=== PATIENT | female | born 1950 | race Caucasian/White ===

== ENCOUNTER 2025-03-30 10:42 | Outpatient (CLI) | payer MEDICARE, SELFPAY | END 2025-03-30 10:43 | disposition home or self-care (01) | LOC: NFLDREF 04-02 15:26 | PROVIDERS: Visit Provider Physician Assistant | DX: N39.0 Urinary tract infection, site not specified (principal); B96.20 Unspecified Escherichia coli [E. coli] as the cause of diseases classified elsewhere | CPT/HCPCS: 87086 ==

== ENCOUNTER 2025-04-01 19:59 | Emergency (ER) | payer MEDICARE, SELFPAY ==
--- OUTSIDE RECORDS SUMMARY | 2022-12-20 05:22 | XMS_ITS | Continuity of Care Document ---
Author Organization [facility] Address [address] [place] [address] Phone Care Team Providers Care Lubricating Specialist Name Role Phone [facility], [place] Unavailable Unavaila ble Advance Directives Directive Yes / No Effective Date File Name No Information Encounters Encounter Description Practice Location Reason(s) For Visit Diagnoses Date Provider Providers Copied on Encounter [facility], [address], [place], [id number] tel: [phone] [facility] No Information [facility]. [address] [place], [id number]. tel: Family History Family Member Type Diagnosis Age At Onset No Information Payers Payer name Insurance type Covered alliance party ID Authoriza tion(s) No Information Social History Type Description Quantity Date Captured Comments Alcohol Use Details Unknown Caffeine Use Details Unknown Tobacco Use Status No Information Smoking Status No Information Sex Female Chief Complaint And Reason For Visit No Information Reason For Referral Reason For Referral No Information History Of Present Illness Encounter Date Complaint History Of Prese nt Illness No Information Functional Status Date Functional Assessmen t No Information Instructions Date Instruction Additional Infor mation No Information Assessments Type Assessment Date No Information Patient Care Teams Name Effective Dates (start - stop) Status Members No Information
--- OUTSIDE RECORDS SUMMARY | 2022-12-20 05:22 | XMS_ITS | Continuity of Care Document ---
Author Organization [facility] Address [address] [place] [address] Phone Care Team Providers Care Merry Go Round Operator Name Role Phone [facility] [place] Unavailable Unavaila ble Advance Directives Directive Yes / No Effective Date File Name No Information Encounters Encounter Description Practice Location Reason(s) For Visit Diagnoses Date Provider Providers Copied on Encounter [facility], [address], [place], [id number] tel: [phone] [facility] No Information [facility]. [address] [place], [id number]. tel: Family History Family Member Type Diagnosis Age At Onset No Information Payers Payer name Insurance type Covered green party ID Authoriza tion(s) No Information Social [...]
--- OUTSIDE RECORDS SUMMARY | 2024-07-31 14:25 | XMS_ITS ---
Author Organization [facility] Address [address] [place] [address] Care Team Providers Care Employee Communications Coordinator Name Role Phone Dominik Barr DO Primary Care Provider Unavail able Blanche Muñoz Unavailable [phone] ALLERGIES Allergen (clinical drug ingredient) Drug/Non Drug Allergy documented on EMR Reaction Allergy Type Onset Date Status phenytoin Dilantin hives Drug Allergy Active oxcarbazepine Trileptal Unknown Drug Allergy Act giovanna codeine Codeine Unknown Drug Allergy Active REASON FOR VISIT possible UTI was here 07/24 and still having symptoms feels like it cleared up only a little bit butnot much MEDICATIONS Medication SIG (Take, Route, Frequency, Duration) Notes Start Date End Date Status QUEtiapine Fumarate 400 MG 1 tab(s) orally once a day (in the evening) Active Nitrofurantoin Monohyd Macro 100 MG 1 capsule with food Orally every 12 hrs for 7 days 07/24/2024 Active Nitrofurantoin Monohyd Macro 100 MG 1 capsule with food Orally every 12 hrs for 7 days 01/21/2024 Not-Taking Naproxen as needed *Raj camara review and pick correct strength-formulat ion from Medlum[employer]an options. If intended option is not shown, discontinue and re-order from Quick Search* Not-Taking LaMICtal 150 MG 1 tab(s) orally 2 times a day Active Amoxicillin-Pot Clavulanate 875-125 MG 1 tab(s) orally every 12 hours for 10 day(s) 10/07/2023 Not-Taking Cephalexin 500 MG 1 capsule Orally three times a day for 7 days 07/31/2024 Active Rosuvastatin Calcium 10 MG 1 tablet Orally Once a day Active DULoxetine HCl 30 MG 1 cap(s) orally 2 times a day Active Gabapentin 600 MG 1 tab(s) orally 3 times a day Active Ciprofloxacin HCl 500 MG 1 tablet Orally every 12 hrs for 7 days 09/19/2023 Not-Taking Macrobid 100 MG 1 cap(s) orally 2 times a day for 7 day(s) 12/29/2022 Not-Taking VITAL SIGNS Temperature 98.2 degrees Fahrenheit 07/31/20 Blood pressure systolic 119 mm Hg 07/31/20 Blood pressure diastolic 79 mm Hg 024 Heart Rate 88 /min 07/31/2024 Respiratory Rate 16 /min 07/31/2024 Height 64 in 07/31/2024 Weight 160 lbs 07/31/2024 BMI 27.46 kg/m2 07/31/2024 Oximetry 96 % 07/31/2024 Height-cm 162.56 cm 07/31/2024 Weight-kg 72.57 kg 07/31/2024 Glenis Palafox MA 07/31/2024 07:39:39 PM > Encounters Encounter Location Date Provider Diagnosis REPLACED BY [facility] [address] [place] [address] 07/31/2024 Blanche Wanda Acute cystitis without hematuria N30.00 ASSESSMENTS Encounter Date Diagnosis Assessment Notes Treatment Notes Treatment Clinical Notes Section Notes 07/31/2024 Acute cystitis without hematuria (ICD-10 - N30.00) Patient's urine culture shows intermediate urinary resistance. Antibiotic should have been switch to something different. Discussed urinary culture results with patient. No further urinalysis or culture needed. I will switch patient to antibiotics susceptible to current urine culture. Medication risks and side effects discussed with patient in clinic. If anything worsens or does not improve in a week, return to clinic. PLAN OF TREATMENT Medication Medication Name Sig Start Date Stop Date Notes Cephalexin 500 MG 1 capsule Orally thr ee times a day for 7 days 07/31/2024 Treatment Notes Assessment Notes Acute cystitis without hematuria Patient 's urine culture shows intermediate urinary resistance. Antibiotic should have been switch to something different. Discussed urinary culture results with patient. No further urinalysis or culture needed. I will switch patient to antibiotics susceptible to current urine culture. Medication risks and side effects discussed with patient in clinic. If anything worsens or does not improve in a week, return to clinic. Next Appt Details Follow Up: prn, Reason: Procedure Notes * Category Sub-Category Detail Notes Medication Dispensed Program/Medication Information: DirectRx Program, medication information sheet given to patient/parent Medication verified: Second staff member verified correct medication, dosage and instructions prior to the medication being dispensed to the correct patient., Ju Yan 07/31/2024 08:04:13 PM > Dispensed by: Glenis Palafox MA 08:01:58 PM > Medication/dosage dispensed: Keflex (cep halexin) 500mg #40 Progress Notes * Brigitte KEY SDOB: 0 (73 yo F)Acc No.[id number]:07/31/2024 Progress Note Patient: Brigitte KEY Provider: Blanche Swain NP :[id number] Age:73 Y Sex:Female Date:07/31/2024 Address:[address] [place] [address] [address], [facility], [id number] Pcp:Dominik Barr, Subjective: * Chief Complaints: * possible UTI was here 07/24 and still having symptoms feels like it cleared up only a little bit but not much * HPI: GI/: 73 year old female presents with c/o Urinary symptoms pain with urination, urinary frequency. Denies : Abdominal pain. Denies : Vomiting. Denies : Nausea. Denies : CVA Tenderness. Denies : Fever. Patient is a pleasant 73-year-old female who comes into urgent care for urinary frequency, urgency that has only gotten moderately better since she was seen in urgent care a week ago. She was prescribed Macrobid. Voicemail was left stating that if symptoms were not getting better on nitrofurantoin the patient should return to clinic. * Active Problem List ?Problem List has not been verified* Medical History: * Surgical History: * Hospitalization/Major Diagno stic Procedure: * Medications: TakingRosuvastatin Calcium 10 MG Tablet 1 tablet Orally Once a day DULoxetine HCl 30 MG Capsule Delayed Release Particles 1 cap(s) orally 2 times a day Gabapentin 600 MG Tablet 1 tab(s) orally 3 times a day LaMICtal 150 MG Tablet 1 tab(s) orally 2 times a day QUEtiapine Fumarate 400 MG Tablet 1 tab(s) orally once a day (in the evening) Nitrofurantoin Monohyd Macro 100 MG Capsule 1 capsule with food Orally every 12 hrs Taking Rosuvastatin Calcium 10 MG Tablet 1 tablet Orally Once a day Taking DULoxetine HCl 30 MG Capsule Delayed Release Particles 1 cap(s) orally 2 times a day Taking Gabapentin 600 MG Tablet 1 tab(s) orally 3 times a day Taking LaMICtal 150 MG Tablet 1 tab(s) orally 2 times a day Taking QUEtiapine Fumarate 400 MG Tablet 1 tab(s) orally once a day (in the evening) Taking Nitrofurantoin Monohyd Macro 100 MG Capsule 1 capsule with food Orally every 12 hrs Not-Taking/PRNNitrofurantoin Monohyd Macro 100 MG Capsule 1 capsule with food Orally every 12 hrs Naproxen , Notes to Pharmacist: as needed *Please review and pick correct strength-formulation from Medispan options. If intended option is not shown, discontinue and re-order from Quick Search*Ciprofloxacin HCl 500 MG Tablet 1 tablet Orally every 12 hrs Macrobid 100 MG Capsule 1 cap(s) orally 2 times a day Amoxicillin-Pot Clavulanate 875-125 MG Tablet 1 tab(s) orally every 12 hours Medication List reviewed and reconciled with the patientNot-Taking/PRN Nitrofurantoin Monohyd Macro 100 MG Capsule 1 capsule with food Orally every 12 hrs Not-Taking/PRN Naproxen , Notes to Pharmacist: as needed *Please review and pick correct strength-formulation from Medispan options. If intended option is not shown, discontinue and re-order from Quick Search*Not-Taking/PRN Ciprofloxacin HCl 500 MG Tablet 1 tablet Orally every 12 hrs Not-Taking/PRN Macrobid 100 MG Capsule 1 cap(s) orally 2 times a day Not- Taking/PRN Amoxicillin-Pot Clavulanate 875-125 MG Tablet 1 tab(s) orally every 12 hours Medication List reviewed and reconciled with the patient * Allergies: CodeineDilantin: hivesTrileptalno[Allergies Verified] Objective: * Vitals: Ht: 64 in, Height (cm): 162.56, Wt: 160 lbs, Weight (kg): 72.57, BMI:27.46, BP:119/79, HR:88, RR: 16, Temp:98.2, O2 sat %:96 Glenis Palafox MA 07/31/2024 07:39:39 PM >. * Examination: Brief Exam: GENERAL APPEARANCE: Constitutional: non-ill appearing, normal speech, well groomedNeuro: Alert and orientated X 3HEENT: atraumatic, normocephalic. C hest: Normal symmetry and expansionAbdomen: Non-distendedSkin: All exposed skin is pink, warm, and dryMusculoskeletal: Active ROM . Assessment: * Assessment: 1. Acute cystitis without hematuria - N30.00 (Primary) Plan: * Treatment: * Procedures: Medication Dispensed: Dispensed by: Glenis Palafox MA 07/31/2024 08:01:58 PM >. Medication/dosage dispensed: Keflex (cephalexin) 500mg #40. Program/Medication Information: DirectRx Program, medication information sheet given to patient/parent. Medication verified: Second staff member verified correct medication, dosage and instructions prior to the medication being dispensed to the correct patient., Ju Yan 07/31/2024 08:04:13 PM >. * Procedure Codes: * Follow Up: prn * * Sign off status: Completed true * Provider: Blanche Swain NP Date: 07/31/2024 History and Physical Notes * HPI (History of Present Illness) Category Sub-Category Detail Notes Category Not es GI/ Fever Patient is a pl easant 73-year-old female who comes into urgent care for urinary frequency, urgency that has only gotten moderately better since she was seen in urgent care a week ago. She was prescribed Macrobid. Voicemail was left stating that if symptoms were not getting better on nitrofurantoin the patient should return to clinic. Abdominal pain Vomiting Urinary symptoms pain with urination, urinary frequency Nausea CVA Tenderness Examination Category Sub-Category Detail Notes Category Not es Brief Exam GENERAL APPEARANCE: Constitution al: non-ill appearing, normal speech, well groomedNeuro: Alert and orientated X 3HEENT: atraumatic, normocephalic. Chest: Normal symmetry and expansionAbdomen: Non-distendedSkin: All exposed skin is pink, warm, and dryMusculoskeletal: Active ROM
--- OUTSIDE RECORDS SUMMARY | 2024-10-10 14:35 | XMS_ITS ---
Author Organization [facility] Address [address] [place] [address] Care Team Providers Care Business Services Sales Agent Name Role Phone Dominik Barr DO Primary Care Provider Unavail Velma Metz Unavailable [phone] ALLERGIES Allergen (clinical drug ingredient) Drug/Non Drug Allergy documented on EMR Reaction Allergy Type Onset Date Status phenytoin Dilantin hives Drug Allergy Active oxcarbazepine Trileptal Unknown Drug Allergy Act giovanna codeine Codeine Unknown Drug Allergy Active RESULTS Component Value Reference Range Notes Urinalysis Reviewed date:10/10/2024 08:12:55 PM Interpretation: Performing Lab: Notes/Report: Color yellow Clarity cloudy Leuk 3+ Nitrite neg Urobili 0.2 Protein 1+ pH 6.0 Blood trace Sp Gr 1.015 Ketone neg Bili neg Glucose neg WBCs RBCs Casts Other -Urine Culture, Routine Reviewed date:10/13/2024 08:49:19 AM Interpretation:Abnormal Performing Lab: Notes/Report: REASON FOR VISIT possible UTI, Patient consents to the use of [employer] dictation software during today's visit. MEDICATIONS Medication SIG (Take, Route, Frequency, Duration) Notes Start Date End Date Status QUEtiapine Fumarate 400 MG 1 tab(s) oral ly once a day (in the evening) Active LaMICtal 150 MG 1 tab(s) orally 2 ti mes a day Active Nitrofurantoin Monohyd Macro 100 MG 1 capsule with food Orally every 12 hrs for 7 days 07/24/2024 Active Rosuvastatin Calcium 10 MG 1 tablet Oral ly Once a day Active Cephalexin 500 MG 2 cap(s) Orally 2 ti mes a day with food for 7 days 10/10/2024 Active SOCIAL HISTORY Tobacco Use: Social History Observation Description Date Details (start date - stop date) Never Smoker NA - NA Sex Assigned At : Social History Observation Description Sex Assigned At Unknown Tobacco Use: Question Answer Notes Are you a: never smoker Additional Findings: Tobacco Non-User Current no n-smoker VITAL SIGNS Temperature 97.4 degrees Fahrenheit 10/10/20 24 Blood pressure systolic 110 mm Hg 10/10/20 24 Blood pressure diastolic 74 mm Hg 024 Heart Rate 94 /min 10/10/2024 Respiratory Rate 16 /min 10/10/2024 Height 64 in 10/10/2024 Weight 154.2 lbs 10/10/2024 BMI 26.47 kg/m2 10/10/2024 Oximetry 96 % 10/10/2024 Height-cm 162.56 cm 10/10/2024 Weight-kg 69.94 kg 10/10/2024 CM RMA Encounters Encounter Location Date Provider Diagnosis [facility] [address] [place] [address] 10/10/2024 Velma Macdonaldum Acute UTI N39.0 ASSESSMENTS Encounter Date Diagnosis Assessment Notes Treatment Notes Treatment Clinical Notes Section Notes 10/10/2024 Acute UTI (ICD-10 - N39.0) Patient will take 1000mg of cephalexin in divided daily dose x 5 days. She will follow up with her PCP due to her frequent UTIs in the next 1-2 weeks. 10/10/2024 Other Urinary Tract Infection: Exam and history are consistent with urinary tract infection. Urinalysis positive for leukocytes and trace blood. Review of previous urine cultures shows varying organisms including enterococcus and Klebsiella. Starting cephalexin due to previous culture sensitivities and safety profile. Patient counseled that medication may need to be changed based on culture results. Will follow up with culture results in a few days. Patient instructed to return immediately if symptoms worsen or by Sunday if not improving. Patient verbalizes understanding of plan. AI Scribe Disclaimer: This note was generated with the assistance of an AI-powered scribe. While every effort has been made to ensure the accuracy and completeness of the documentation, errors or omissions may occur, similar to dictation systems. The healthcare provider has reviewed and approved the contents of this note. If any inaccuracies are identified, they will be corrected promptly upon discovery. PLAN OF TREATMENT Medication Medication Name Sig Start Date Stop Date Notes Cephalexin 500 MG 2 cap(s) Orally 2 ti mes a day with food for 7 days 10/10/2024 Treatment Notes Assessment Notes Acute UTI Patient will take 10 00mg of cephalexin in divided daily dose x 5 days. She will follow up with her PCP due to her frequent UTIs in the next 1-2 weeks. Other Urinary Tract Infection: Exam and history are consistent with urinary tract infection. Urinalysis positive for leukocytes and trace blood. Review of previous urine cultures shows varying organisms including enterococcus and Klebsiella. Starting cephalexin due to previous culture sensitivities and safety profile. Patient counseled that medication may need to be changed based on culture results. Will follow up with culture results in a few days. Patient instructed to return immediately if symptoms worsen or by Sunday if not improving. Patient verbalizes understanding of plan. Next Appt Details Follow Up: See treatment nubia n for details, Reason: Procedure Notes * Category Sub-Category Detail Notes Medication Dispensed Program/Medication Information: DirectRx Program, medication information sheet given to patient/parent Medication verified: Second staff member verified correct medication, dosage and instructions prior to the medication being dispensed to the correct patient., Chip Cartwright MA N 10/10/2024 08:11:51 PM > Dispensed by: Ju Yan 1 12/11/2023 08:10:41 PM > Medication/dosage dispensed: Keflex (cep halexin) 500mg #40 Progress Notes * Brigitte KEY SDOB: 0 (74 yo F)Acc No.[id number]:10/10/2024 Progress Note Patient: Brigitte KEY Provider: RITESH Angelo :1950 Age:74 Y Sex:Female Date:10/10/2024 Address:[facility] [address] [place], [id number] Pcp:Dominik Barr DO Subjective: * Chief Complaints: * possible UTIPatient consents to the use of AI dictation software during today's visit. * HPI: Note:: Presents with urinary frequency and urgency. Has a history of frequent urinary tract infections. Reports noticing symptoms with delayed onset of cloudy urine compared to previous episodes. Has been maintaining good fluid intake. P ast medical history significant for Multiple Sclerosis. H istorian Denies:No known drug allergies, specifically no antibiotic allergies. * ROS: UROLOGY: Admits urinary frequency. * Active Problem List ?Problem List has not been verified* Medical History: * Surgical History: No Surgical History documented. * Hospitalization/Major Diagno stic Procedure: No Hospitalization History. * Family History: Father: . Mother: . * Social History: General: Tobacco Use Are you a: never smoker Additional Findings: Tobacco Non-User Current non-smoker Smokeless Tobacco or other tobacco use: no. * Medications: TakingRosuvastatin Calcium 10 MG Tablet 1 tablet Orally Once a day LaMICtal 150 MG Tablet 1 tab(s) orally 2 times a day QUEtiapine Fumarate 400 MG Tablet 1 tab(s) orally once a day (in the evening) Nitrofurantoin Monohyd Macro 100 MG Capsule 1 capsule with food Orally every 12 hrs Taking Rosuvastatin Calcium 10 MG Tablet 1 tablet Orally Once a day Taking LaMICtal 150 MG Tablet 1 tab(s) orally 2 times a day Taking QUEtiapine Fumarate 400 MG Tablet 1 tab(s) orally once a day (in the evening) Taking Nitrofurantoin Monohyd Macro 100 MG Capsule 1 capsule with food Orally every 12 hrs DiscontinuedDULoxetine HCl 30 MG Capsule Delayed Release Particles 1 cap(s) orally 2 times a day Gabapentin 600 MG Tablet 1 tab(s) orally 3 times a day Cephalexin 500 MG Capsule 1 capsule Orally three times a day Nitrofurantoin Monohyd Macro 100 MG Capsule 1 [...] Medication List reviewed and reconciled with the patientDiscontinued DULoxetine HCl 30 MG Capsule Delayed Release Particles 1 cap(s) orally 2 times a day Discontinued Gabapentin 600 MG Tablet 1 tab(s) orally 3 times a day Discontinued Cephalexin 500 MG Capsule 1 capsule Orally three times a day Discontinued Nitrofurantoin Monohyd Macro 100 MG Capsule 1 capsule with food Orally every 12 hrs Discontinued Naproxen , Notes to Pharmacist: as needed *Please review and pick correct strength-formulation from Medispan options. If intended option is not shown, discontinue and re-order from Quick Search*Discontinued Ciprofloxacin HCl 500 MG Tablet 1 tablet Orally every 12 hrs Discontinued Macrobid 100 MG Capsule 1 cap(s) orally 2 times a day Discontinued Amoxicillin-Pot Clavulanate 875-125 MG Tablet 1 tab(s) orally every 12 hours Medication List reviewed and reconciled with the patient * Allergies: CodeineDilantin: hivesTrileptalno[Allergies Verified] Objective: * Vitals: Ht: 64 in, Height (cm): 162.56, Wt: 154.2 lbs, Weight (kg): 69.94, BMI:26.47, BP:110/74, HR:94, RR:16, Temp:97.4, O2 sat %:96 CM RMA. * Examination: Brief Exam: GENERAL APPEARANCE: Alert, p leasant, N AD, h ealthy a ppearing. HEENT: Atraumatic, n ormocephalic. HEART: RRR, n ormal S 1 S 2, n o m urmurs. *CHEST: Normal s hape a nd e xpansion. LUNGS: Clear t o a uscultation b ilaterally, n o c rackles o r?wheezes, n ormal r espiratory e ffort. ABDOMEN: Soft, n ontender, n on d istended, b owel s ounds p resent, n o m asses f elt, n o h epatosplenomegaly, no CVA TTP.. SKIN: Dry a nd w arm, n o r yair. EXTREMITIES: Normal, n o e denise. NEUROLOGIC EXAM: Alert a nd o riented. Assessment: * Assessment: 1. Acute UTI - N39.0 (Primary) Plan: * Treatment: Value Reference Range Color yellow * Clarity cloudy * Leuk 3+ * Nitrite neg * Urobili 0.2 * Protein 1+ * pH 6.0 * Blood trace * Sp Gr 1.015 * Ketone neg * Bili neg * Glucose neg * Ju Yan 10/10/2024 08:02:14 PM >Velma Avitia 10/10/2024 08:12:42 PM >positive for leuks and trace blood. Notes: Patient will take 1000mg of cephalexin in divided daily dose x 5 days. She will follow up with her PCP due to her frequent UTIs in the next 1-2 weeks.?2.??Others?? Notes: Urinary Tract Infection: Exam and history are consistent with urinary tract infection. Urinalysis positive for leukocytes and trace blood. Review of previous urine cultures shows varying organisms including enterococcus and Klebsiella. Starting cephalexin due to previous culture sensitivities and safety profile. Patient counseled that medication may need to be changed based on culture results. Will follow up with cultureresults in a few days. Patient instructed to return immediately if symptoms worsen or by Sunday if not improving. Patient verbalizes understanding of plan.? Clinical Notes: AI Scribe Disclaimer: This note was generated with the assistance of an AI-powered scribe. While every effort has been made to ensure the accuracy and completeness of the documentation, errors or omissions may occur, similar to dictation systems. The healthcare provider has reviewedand approved the contents of this note. If any inaccuracies are identified, they will be corrected promptly upon discovery.? * Procedures: Medication Dispensed: Dispensed by: Ju Yan 10/10/2024 08:10:41 PM >. Medication/dosage dispensed: Keflex (cephalexin) 500mg #40. Program/Medication Information: DirectRx Program, medication information sheet given to patient/parent. Medication verified: Second staff member verified correct medication, dosage and instructions prior to the medication being dispensed to the correct patient., Chip Cartwright MA 10/10/2024 08:11:51 PM >. * Procedure Codes: 78301 #URINE DIP WITHOUT MICRO IN [id number] #URINE CULTURE/COLONY COUNT, Modifiers: 90 * Follow Up: See treatment plan for details * * Sign off status: Completed true * Provider: RITESH Angelo Date: 10/10/2024 History and Physical Notes * HPI (History of Present Illness) Category Sub-Category Detail Notes Category Not es Note: Presents with urinary frequency and urgency. Has a history of frequent urinary tract infections. Reports noticing symptoms with delayed onset of cloudy urine compared to previous episodes. Has been maintaining good fluid intake. Past medical history significant for Multiple Sclerosis. Historian Denies:No known drug allergies, specifically no antibiotic allergies. Examination Category Sub-Category Detail Notes Category Not es Brief Exam HEENT: Atraumatic, normocephalic HEART: RRR, normal S1 S2, n o murmurs LUNGS: Clear to auscultatio n bilaterally, no crackles or wheezes, normal respiratory effort ABDOMEN: Soft, nontender, non distended, bowel sounds present, no masses felt, no hepatosplenomegaly, no CVA TTP. EXTREMITIES: Normal, no edema GENERAL APPEARANCE: Alert, pleasant, NAD , healthy appearing SKIN: Dry and warm, no miguel h NEUROLOGIC EXAM: Alert and oriented *CHEST: Normal shape and exp ansion
--- OUTSIDE RECORDS SUMMARY | 2025-02-22 11:35 | XMS_ITS ---
Author Organization [facility] Address [address] [place] [address] Care Team Providers Care Armature Winder Name Role Phone Dominik Barr DO Primary Care Provider Unavail able Naresh Manzano Unavailable ALLERGIES Allergen (clinical drug ingredient) Drug/Non Drug Allergy documented on EMR Reaction Allergy Type Onset Date Status phenytoin Dilantin hives Drug Allergy Active oxcarbazepine Trileptal Unknown Drug Allergy Act giovanna codeine Codeine Unknown Drug Allergy Active RESULTS Component Value Reference Range Notes Urinalysis Reviewed date:02/22/2025 05:44:20 PM Interpretation:Positive Performing Lab: Notes/Report: Positive Color yellow Clarity cloudy Leuk 3+ Nitrite negative Urobili 0.2 Protein negative pH 6.0 Blood 2+ Sp Gr 1.010 Ketone negative Bili negative Glucose negative WBCs RBCs Casts Other -Urine Culture, Routine Reviewed date:02/26/2025 08:28:47 AM Interpretation:Positive Performing Lab: Notes/Report: REASON FOR VISIT Woke today with lower pelvic spasms, urgency and frequency with urination, felt feverish this past week MEDICATIONS Medication SIG (Take, Route, Frequency, Duration) Notes Start Date End Date Status Cephalexin 500 MG 1 capsule Orally 3 t imes a day for 7 days 02/22/2025 Active Lurasidone HCl 20 MG TAKE 1 TABLET BY MO UT EVERY EVENING AFTER DINNER Oral for 30 Days Active Rosuvastatin Calcium 10 MG 1 tablet Oral ly Once a day Active LaMICtal 150 MG 1 tab(s) orally 2 ti mes a day Active SOCIAL HISTORY Tobacco Use: Social History Observation Description Date Details (start date - stop date) Never Smoker NA - NA Sex Assigned At : Social History Observation Description Sex Assigned At Unknown Tobacco Use: Question Answer Notes Are you a: never smoker Additional Findings: Tobacco Non-User Current no n-smoker VITAL SIGNS Temperature 98.3 degrees Fahrenheit 02/23/20 25 Blood pressure systolic 106 mm Hg 02/23/20 25 Blood pressure diastolic 71 mm Hg 025 Heart Rate 73 /min 02/22/2025 Respiratory Rate 16 /min 02/22/2025 Height 63.75 in 02/22/2025 Weight 141.6 lbs 02/22/2025 BMI 24.49 kg/m2 02/22/2025 Oximetry 98 % 02/22/2025 Height-cm 161.93 cm 02/22/2025 Weight-kg 64.23 kg 02/22/2025 [address] Encounters Encounter Location Date Provider Diagnosis [facility] [address] [place] [address] 02/22/2025 Naresh Manzano Acute cystitis wit h hematuria N30.01 ASSESSMENTS Encounter Date Diagnosis Assessment Notes Treatment Notes Treatment Clinical Notes Section Notes 02/22/2025 Acute cystitis with hematuria (ICD-10 - N30.01) UTIs are usually the result of anorectal bacteria getting into the urinary tract. Always wipe from front to back, drink plenty of fluids regularly (at least 64 ounces a day), and urinate after intercourse if sexually active. Start and complete the antibiotic as discussed. Follow up with your PCP or RTC if you are still experiencing symptoms after 2-3 days of treatment. Go to the ER if you develop fever, vomiting, or new/worsening back pain as these symptoms may suggest a more serious infection. Take OTC Tylenol and ibuprofen if needed for pain (with food), follow the dosing chart available on our web site. Rest and increase hydration. Your urine will be sent out for Culture and Sensitivities, we will call with results and to check patients status or to make any medication changes if necessary. Discussed side effects and risks of medications with the patient. Declines STD testing. Patient expressed understanding and a willingness to participate in the plan. Patient left the UC in a stable condition indicating that all of their questions were answered. PLAN OF TREATMENT Medication Medication Name Sig Start Date Stop Date Notes Cephalexin 500 MG 1 capsule Orally 3 t imes a day for 7 days 02/22/2025 Treatment Notes Assessment Notes Acute cystitis with hematuria UTIs are u sually the result of anorectal bacteria getting into the urinary tract. Always wipe from front to back, drink plenty of fluids regularly (at least 64 ounces a day), and urinate after intercourse if sexually active. Start and complete the antibiotic as discussed. Follow up with your PCP or RTC if you are still experiencing symptoms after 2-3 days of treatment. Go to the ER if you develop fever, vomiting, or new/worsening back pain as these symptoms may suggest a more serious infection. Take OTC Tylenol and ibuprofen if needed for pain (with food), follow the dosing chart available on our web site. Rest and increase hydration. Your urine will be sent out for Culture and Sensitivities, we will call with results and to check patients status or to make any medication changes if necessary. Discussed side effects and risks of medications with the patient. Declines STD testing. Patient expressed understanding and a willingness to participate in the plan. Patient left the UC in a stable condition indicating that all of their questions were answered. Next Appt Details Follow Up: per treatment nubia n, Reason: Procedure Notes * Category Sub-Category Detail Notes Medication Dispensed Program/Medication Information: DirectRx Program, medication information sheet given to patient/parent Medication verified: Second staff member verified correct medication, dosage and instructions prior to the medication being dispensed to the correct patient., Glenis Palafox MA 02/22/2025 05:33:18 PM > Dispensed by: Salena Lucas 05:31:26 PM > Medication/dosage dispensed: Keflex (cep halexin) 500mg #40 Progress Notes * Brigitte KEY SDOB: 0 (74 yo F)Acc No.[id number]:02/22/2025 Progress Note Patient: Brigitte KEY Provider: RYNE Sandhu :1950 Age:74 Y Sex:Female Date:02/22/2025 Address:[address] [place] [address] [address], [place], [id number] Pcp:Domniik Barr DO Subjective: * Chief Complaints: * 1. Woke today with lower pelvic spasms, urgency and frequency with urination, felt feverish this past week. * HPI: GI/: increasing discomfort with urination starting this morning along with increased frequency and urgency. T he above nursing note was reviewed and confirmed with the patient. C /C: + dysuria, + frequency, + urgency S ymptoms started this morning N o fevers or aches and chills. Denies: No LBP, or flank discomfort, denies any abdominal or pelvic discomfort, no NVDC, no c/p, SOB or difficulty breathing, no rash. N o vaginal discharge or vaginal itching. A ppetite is good, taking food and fluids well. 74 year old female presents with c/o Urinary symptoms. Denies : Abdominal pain. Denies : Vomiting. Denies : Nausea. Denies : Diarrhea. Denies : Constipation. Denies : Rectal Bleeding. Denies : CVA Tenderness. Denies : Female Specific Symptoms. Denies : Fever. * Active Problem List ?Problem List has not been verified* Medical History: * Social History: General: Tobacco Use Are you a: never smoker Additional Findings: Tobacco Non-User Current non-smoker Smokeless Tobacco or other tobacco use: no. * Medications: Taking Rosuvastatin Calcium 10 MG Tablet 1 tablet Orally Once a day , Taking LaMICtal 150 MG Tablet 1 tab(s) orally 2 times a day , Taking Lurasidone HCl 20 MG Tablet TAKE 1 TABLET BY MOUTH EVERY EVENING AFTER DINNER Oral , Discontinued QUEtiapine Fumarate 400 MG Tablet 1 tab(s) orally once a day (in the evening) , Notes to Pharmacist: ran its course, Discontinued Nitrofurantoin Monohyd Macro 100 MG Capsule 1 capsule with food Orally every 12 hrs , Discontinued Cephalexin 500 MG Capsule 2 cap(s) Orally 2 times a day with food , Medication List reviewed and reconciled with the patient * Allergies: Codeine, Dilantin: hives, Trileptal. Objective: * Vitals: Ht: 63.75 in, Height (cm): 161.93, Wt: 141.6 lbs, Weight (kg): 64.23, BMI:24.49, BP:106/71, HR:73, RR:16, Temp:98.3, O2 sat %:98, LMP Date: post te mbahr rt. * Examination: Brief Exam: GENERAL APPEARANCE: NAD, well nourished. HEART: S1S2 RRR, no M/G/R. *CHEST: normal shape and expansion. LUNGS: clear to auscultation bilaterally, no abnormal lung sounds. ABDOMEN: soft, NT/ND, BS present, no CVA tenderness. SKIN: warm, dry. EXTREMITIES: normal ROM, no clubbing, no edema. NEUROLOGIC EXAM: alert and oriented x 3. Assessment: * Assessment: 1. Acute cystitis with hematuria - N30.01 (Primary) Plan: * Treatment: * Procedures: Medication Dispensed: Dispensed by: Salena Lucas 02/22/2025 05:31:26 PM >. Medication/dosage dispensed: Keflex (cephalexin) 500mg #40. Program/Medication Information: DirectRx Program, medication information sheet given to patient/parent. Medication verified: Second staff member verified correct medication, dosage and instructions prior to the medication being dispensed to the correct patient., Glenis Palafox MA 02/22/2025 05:33:18 PM >. * Labs: * Lab: Urinalysis (Collection Date & Time - 02/22/2025 04:59 PM) Positive Value Reference Range Color yellow * Clarity cloudy * Leuk 3+ * Nitrite negative * Urobili 0.2 * Protein negative * pH 6.0 * Blood 2+ * Sp Gr 1.010 * Ketone negative * Bili negative * Glucose negative * Salena Lucas 02/22/2025 05:00:55 PM >Naresh Manzano 02/22/2025 05:44:17 PM >Reviewed with the patient at the time of visit. ?Lab: -Urine Culture, Routine (Collection Date & Time - 02/22/2025 05:22 PM)* Roxanna Rodriguez 02/25/2025 08:15:35 AM > Urine cultures positive, growing out Klebsiella bacteria. The antibiotics you watch be effective at treating this infection follow up if symptoms are not improving.Glenis Palafox MA 02/25/2025 08:57:54 AM >BIJALheavenlySalena Willingham 02/26/2025 08:28:16 AM > Left a detailed message on machine with results. * Procedure Codes: 93662 #URINE DIP WITHOUT MICRO IN HOUSE, 61300 #URINE CULTURE/COLONY COUNT, Modifiers: 90 * Follow Up: per treatment plan * * Sign off status: Pending * Provider: RYNE Sandhu Date: 02/22/2025 History and Physical Notes * HPI (History of Present Illness) Category Sub-Category Detail Notes Category Not es GI/ Fever Abdominal pain Vomiting Diarrhea Constipation Rectal Bleeding Urinary symptoms Female Specific Symptoms Nausea CVA Tenderness Examination Category Sub-Category Detail Notes Category Not es Brief Exam HEART: S1S2 RRR, no M/G/R LUNGS: clear to auscultatio n bilaterally, no abnormal lung sounds ABDOMEN: soft, NT/ND, BS pres ent, no CVA tenderness EXTREMITIES: normal ROM, no clubb ing, no edema GENERAL APPEARANCE: NAD, well nourished SKIN: warm, dry NEUROLOGIC EXAM: alert and oriented x 3 *CHEST: normal shape and exp ansion
--- OUTSIDE RECORDS SUMMARY | 2025-04-01 20:01 | XMS_ITS | Clinical Summary ---
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 Reading Time Taken Comments Blood Pressure 127/82 12/23/2024 2:02 PM MST Pulse 87 12/23/2024 2:02 PM MST Temperature 36.5 C (97.7 F) 12/23/2024 2:02 PM MST Respiratory Rate 16 12/23/2024 2:02 PM MST Oxygen Saturation 96% 12/23/2024 2:02 PM MST Inhaled Oxygen Concentration - - Weight 66.4 kg (146 lb 6.2 oz) 12/23/2024 2:02 P M MST Height 161.3 cm (5' 3.5) 12/23/2024 2:02 PM MST Body Mass Index 25.52 12/23/2024 2:02 PM [facility] Plan of Treatment Upcoming Encounters Date Type Department Care Team (Late st Contact Info) Description 04/07/2025 4:00 PM MDT Office Visit [facility] - Internal Medicine: [address] [place] [address] Dominik Barr, DO [address] [place] [address] Discharge Disposition: Home or Self Care 12/24/2025 2:00 PM MST Office Visit [facility] - Internal Medicine: [address] [place] [address] Dominik Barr, DO [address] [place] [address] Discharge Disposition: Home or Self Care Health Maintenance Due Date Last Done Comments SHINGLES VACCINE (1 of 2) 09/10/2013 COLON CANCER SCREENING: FECA L OCCULT BLOOD / FIT 09/20/2013 09/20/2012, 09/20/2012 BREAST CANCER SCREENING 09/07/2017 09/07/20 15, 09/07/2015, 07/21/2013, Additional history exists COVID-19 Vaccine (2023-2 5 season) 2024 2021, 07/26/2021 INFLUENZA VACCINE (Season Ended) 2025 09/12/2017, 09/06/2016, 10/08/2015, Additional history exists Annual Wellness Visit 12/23/2025 12/23/2024 , 07/30/2023, 07/31/2022, Additional history exists Tdap/Td ADULT (5 - Td or Tdap) 12/24/2034 0 12/24/2024, 07/15/2014, 07/04/2003, Additional history exists CERVICAL CANCER SCREENING Discontinued 12/09/2008 HEPATITIS C SCREENING Completed 07/15/2014 hrHPV Screening Discontinued 07/15/2014 PNEUMOCOCCAL VACCINE: 50+ Years Completed 7, 07/16/2015 OSTEOPOROSIS SCREENING Completed 08/14/2017 Goals Goal Patient Goal Type Associated Problems Recent Progress Patient-Stated? Author Remove loose rugs, avoid slippery surfaces, ensure adequate lighting in home, place handrails on stairs and in bathroom Fall Risk/Imbalance On track(2014 11:12 AM [facility]) No Dominique Begum LPN Manage stress Lifestyle On track(2015 10:39 AM [facility]) No Dominique Begum LPN Note: See counselors Reduce alcohol intake to1 serving Preventative Health/Routine Health Maintenance No Dominique Begum LPN Note: Do not have more than 1 alcoholic drink in a setting. She will have increased spinning and side effects. Procedures Procedure Name Priority Date/Time Associated Diagnosis Comments DEXA BONE DENSITY SPINE AND HIP Routine 08/14/2017 1:45 PM MDT Disorder of bone Screening for osteoporosis MG BILAT DIAG W-ULT BILAT PRINCE Routine 09/07/2015 1:45 PM MST HRHPV LOW RISK LAURITA PARAFFIN ([facility]UP) Routine 07/15/2014 12:30 PM MDT Screening for malignant neoplasm of the cervix HEPATITIS C ANTIBODY Routine 07/15/2014 12:10 PM MDT Routine medical exam OCCULT BLOOD, FECAL (CANCER SCREEN) Routine 09/20/2012 2:50 PM MST HM PAP SMEAR Routine 12/09/2008 from Last 3 Months or Most Recently Relevant to Health Maintenance Results * DEXA Bone Density Spine And Hip (08/14/2017 1:45 PM MDT) Anatomical Region Laterality Modality Spine, Hip Computed Radiogr aphy 08/14/2017 5:34 PM MDT Impressions 08/14/2017 5:34 PM MDT The lowest T-score value is -2.3 measured at the right femoral neck. This patient is considered osteopenic according to the World Health Organization (WHO criteria). The DXA bone densitometry images and report are stored on the [employer] system and are viewable in the [facility] EMR by using the DXA report link in [facility] chart review. The report can be printed directly from the DXA report link in [facility] chart review. For a mailed or faxed copy please call: [phone] 7am-5pm RYAN M-Katey. Patients requesting a full printed report must sign a medical release form. COMMENT: Review of the images indicates that this was a technically adequate study. Narrative 08/14/2017 5:34 PM MDT HISTORY: Disorder of bone; Screening for osteoporosis INDICATIONS AND RISK FACTORS: . Postmenopausal. Procedure Note Marin Lim MD - 08/14/2017 HISTORY: Disorder of bone; Screening for osteoporosis INDICATIONS AND RISK FACTORS: . Postmenopausal. IMPRESSION: The lowest T-score value is -2.3 measured at the right femoral neck. Thispatient is considered osteopenic according to the World HealthOrganization (WHO criteria). The DXA bone densitometry images and report are stored on the [employer] system and are viewable in the [facility] EMR by using the DXA report linkin [facility] chart review. The report can be printed directly from the DXA report link in [facility] chartreview. For a mailed or faxed copy please call: [phone] 7am-5pm MST, M-F.Patients requesting a full printed report must sign a medical releaseform. COMMENT: Review of the images indicates that this was a technicallyadequate study. us Kandi Mclaughlin MD IMG DEXA ORDERABLES Final Res ult * MG BILAT DIAG W-ULT BILAT PRINCE (09/07/2015 1:45 PM [facility]) Anatomical Region Laterality Modality Computed Tomogra phy 09/07/2015 1:45 PM [facility] Narrative 09/07/2015 1:54 PM [facility] DATE: 09/07/2015 MG BILAT DIAG W-ULT BILAT PRINCE [facility] BREAST IMAGING [place] HISTORY: 65-year-old female patient who is here for a region of dimpling in the right breast at the 5:00 position. BILATERAL DIGITAL DIAGNOSTIC MAMMOGRAPHY WITH TOMOGRAPHY AND COMPUTER AIDED DETECTION AND BILATERAL BREAST ULTRASOUND COMPARISON: Correlation is made with multiple prior studies. FINDINGS: Mammography: Digital diagnostic 2-D and 3-D mammography was performed of both breasts. Interpretation was performed with computer aided detection. The breast tissue is heterogeneously dense, which may obscure small masses. Right breast: There is a smoothly marginated mass present on the right at approximately the 12:00 position middle depth right breast. Ultrasound of this region is recommended. Ultrasound the region of dimpling at the 5:00 position is also recommended. Left breast: There is an vague questionable focal asymmetry present at approximately 3:00 position left breast. Ultrasound is region is recommended. Ultrasound: Ultrasound was performed of both breasts. Right breast: In the area of dimpling, there is no cystic or solid lesion identified. There is no imaging evidence of malignancy. There is a simple cyst present on the right at the 12:00 position corresponding in size and location the mammographic abnormality. No further workup of this is required. Left breast: No solid or cystic abnormality is identified. Left breast is unremarkable. CONCLUSION: Follow-up of the dimpling is recommended otherwise the study is benign. Recommend yearly screening mammograms. BI-RADS Category 2- Benign Findings ELECTRONICALLY AUTHENTICATED ALEXA POLANCO MD. Sep 07 2015 1:54P [facility] T: SHEREE d: Sep 07 2015 1:54P t: Sep 07 2015 1:54P Document #[id number] Job # CC: KANDI MCLAUGHLIN Procedure Note Alexa Polanco MD - 09/07/2015 DATE: 09/07/2015 MG BILAT DIAG W-ULT BILAT PRINCE [facility] BREAST IMAGING [place] HISTORY: 65-year-old female patient who is here for a region of dimpling in the right breast at the 5:00 position. BILATERAL DIGITAL DIAGNOSTIC MAMMOGRAPHY WITH TOMOGRAPHY AND COMPUTER AIDED DETECTION AND BILATERAL BREAST ULTRASOUND COMPARISON: Correlation is made with multiple prior studies. FINDINGS: Mammography: Digital diagnostic 2-D and 3-D mammography was performed of both breasts. Interpretation was performed with computer aided detection. The breast tissue is heterogeneously dense, which may obscure small masses. Right breast: There is a smoothly marginated mass present on the right at approximately the 12:00 position middle depth right breast. Ultrasound of this region is recommended. Ultrasound the region of dimpling at the 5:00 position is also recommended. Left breast: There is an vague questionable focal asymmetry present at approximately 3:00 position left breast. Ultrasound is region is recommended. Ultrasound: Ultrasound was performed of both breasts. Right breast: In the area of dimpling, there is no cystic or solid lesion identified. There is no imaging evidence of malignancy. There is a simple cyst present on the right at the 12:00 position corresponding in size and location the mammographic abnormality. No further workup of this is required. Left breast: No solid or cystic abnormality is identified. Left breast is unremarkable. CONCLUSION: Follow-up of the dimpling is recommended otherwise the study is benign. Recommend yearly screening mammograms. BI-RADS Category 2- Benign Findings ELECTRONICALLY AUTHENTICATED ALEXA POLANCO MD. Sep 07 2015 1:54P [facility] T: SHEREE d: Sep 07 2015 1:54P t: Sep 07 2015 1:54P Document #[id number] Job # CC: KANDI MCLAUGHLIN us Kandi Mclaughlin MD IMG MAMMOGRAPHY ORDERABLES Fi nal Result * HPV (HUMAN PAPILLOMAVIRUS), HCII [id number] (07/15/2014 12:30 PM MDT) HPV DNA HIGH RISK NOT DETECTED NOT DETECTED [facility] Comment:Tested for High Risk types 16,18,31,33,35,39,45,51,52,56,58,59,68 HPV DNA LOW RISK NOT DETECTED NOT DETECTED [facility] Comment: Tested for Low Risk types 6,11,42,43,44 The analytical performance characteristics of this assay, when used to test SurePath(R) or Vaginal specimens, or to test Low-Risk HPV types with the Rapid Capture System have been determined by [facility]. Methodology: Hybrid Capture with Signal Amplification. Test Performed at: [facility] [address] [address] Lesley Rick MD, PhD 07/15/2014 12:3 0 PM MDT 07/21/2014 12:30 PM MDT Kandi Mclaughlin MD MICROBIOLOGY - OTHER Final Re sult Performing Organization Address City/[facility]/ZIP Co de Phone Number [facility] [address] [place] [address], [facility] * HEPATITIS C ANTIBODY (07/15/2014 12:10 PM MDT) Pathologist [facility] HEPATITIS C ANTIBODY NEGATIVE NEGATIVE [facility] Blood specimen (specimen) ENTIRE BLOOD VESSEL / Unknown 07/15/2014 12:10 PM MDT 07/15/2014 5:15 PM MDT Kandi Mclaughlin MD LAB BLOOD ORDERABLES Final Re sult [facility] * OCCULT BLOOD, FECAL (09/20/2012 2:50 PM MST) Pathologist [facility] OCCULT BLOOD, FECAL NEGATIVE NEGATIVE [facility] 09/20/2012 2:50 PM MST 09/20/2012 3:21 PM MST Ajay Noriega MD BODY FLUIDS AND STOOLS ORDERA BLES Final Result [facility] [address] [place] [address], [place] * HM PAP SMEAR (12/09/2008) PAP atrophic smear us Historical Provider PATHOLOGY/CYTOLOGY COPATH Final Result from Last 3 Months or Most Recently Relevant to Health Maintenance Insurance MEDICARE [facility] Advance Directives For more information, please contact: [phone] Documents on File Type Date Recorded Patient Pattern Gater Expl anation POST Form 07/15/2014 12:33 PM 2014-07-06 0 POST * Full Code (Latest Code Status on File) Date Activated Date Inactivated Comments 12/02/2022 3:30 PM * Full Code Date Activated Date Inactivated Comments 07/16/2015 1:52 PM 07/04/2017 1:10 PM Care Teams Data Management Associate Relationship Specialty Start Date End Date Dominik Barr, [address] [place] [address] PCP - General Internal Medicine 10/31/19 Bassam Byrne MD [address] [place] [address] Neurology 03/04/12 Mili Schroeder MD [address] [place] [address] Physician (Non Attending) Gastroenterology 10/12/20 Naresh Whitehead MD [address] [place] [address] Physician (Non Attending) Sports Medicine 10/12/20 Manjit Pace MD [address] [place] [address] Physician (Non Attending) Cardiology 10/12/20 [facility] [address] [place] [address] Psychiatry 07/20/21
--- OUTSIDE RECORDS SUMMARY | 2025-04-01 20:01 | XMS_ITS | Patient Health Record ---
Author Organization [facility] Address [address] [place] [address] Care Team Providers Care Sand Bobber Name Role Phone Dominik Barr DO Primary Care Provider Unavail able Velma Avitia Unavailable [phone] Naresh Manzano Unavailable [phone] Blanche Muñoz Unavailable [phone] Regine Mata Unavailable [phone] ALLERGIES Allergen (clinical drug ingredient) Drug/Non Drug [...] date:02/26/2025 08:28:47 AM Interpretation:Positive Performing Lab: Notes/Report: Urinalysis Reviewed date:07/24/2024 09:12:46 PM Interpretation:Positive Performing Lab: Notes/Report: Positive Color [place] Clarity Cloudy Leuk 2+ Nitrite neg Urobili 0.2 Protein neg pH 6.0 Blood +- Sp Gr 1.015 Ketone neg Bili neg Glucose neg WBCs RBCs Casts Other -Urine Culture, Routine Reviewed date:07/28/2024 08:34:16 AM Interpretation:Positive Performing Lab: Notes/Report: Urinalysis Reviewed date:10/10/2024 08:12:55 PM Interpretation: Performing Lab: Notes/Report: Color yellow Clarity cloudy Leuk 3+ Nitrite neg Urobili 0.2 Protein 1+ pH 6.0 Blood trace Sp Gr 1.015 Ketone neg Bili neg Glucose neg WBCs RBCs Casts Other -Urine Culture, Routine Reviewed date:10/13/2024 08:49:19 AM Interpretation:Abnormal Performing Lab: Notes/Report: REASON FOR REFERRAL No Information MEDICATIONS Medication SIG (Take, Route, Frequency, Duration) Notes Start Date End Date Status Rosuvastatin Calcium 10 MG 1 tablet Oral ly Once a day Active Cephalexin 500 MG 1 capsule Orally 3 t imes a day for 7 days 02/22/2025 Active LaMICtal 150 MG 1 tab(s) orally 2 ti mes a day Active Lurasidone HCl 20 MG TAKE 1 TABLET BY MO UTH EVERY EVENING AFTER DINNER Oral for 30 Days Active IMMUNIZATIONS Vaccine Route Administration Date Status Comme nts Td with preservative State Unknown 07/04/2003 Administe red SOCIAL HISTORY Tobacco Use: Social History Observation Description Date Details (start date - stop date) Never Smoker NA - NA Sex Assigned At : Social History Observation Description Sex Assigned At Unknown Tobacco Use: Question Answer Notes Are you a: never smoker Additional Findings: Tobacco Non-User Current no n-smoker VITAL SIGNS Heart Rate 73 /min 02/22/2025 mb[facility] rt Temperature 98.3 degrees Fahrenheit 02/22/2025 sophie r rt Respiratory Rate 16 /min 02/22/2025 [facility] Oximetry 98 % 02/22/2025 [facility] Blood pressure diastolic 71 mm Hg 02/22/2025 mary hr rt Height-cm 161.93 cm 02/22/2025 [facility] Weight-kg 64.23 kg 02/22/2025 [facility] Height 63.75 in 02/22/2025 [facility] Blood pressure systolic 106 mm Hg 02/22/2025 sophie r rt Weight 141.6 lbs 02/22/2025 [facility] BMI 24.49 kg/m2 02/22/2025 [facility] rt Encounters Encounter Location Date Provider Diagnosis [facility] [address] [place] [facility] [place] [address] 02/22/2025 Naresh Manzano Acute cystitis wit h hematuria N30.01 [facility] [address] [place] [place] [place] [address] 07/24/2024 Regine Mata Acute UTI N39.0 [facility] [address] [facility] [place] [address] 07/31/2024 Blanche Muñoz Acute cystitis without hematuria N30.00 [facility] [address] [place] [place] [address] 10/10/2024 Velma Avitia Acute UTI N39.0 ASSESSMENTS Encounter Date Diagnosis Assessment Notes Treatment Notes Treatment Clinical Notes Section Notes 07/24/2024 Acute UTI (ICD-10 - N39.0) Urinalysis discussed in clinic was positive. Urine culture performed, we will call with results in approximately 3-4 days.History and exam are most consistent with an acute urinary tract infection (UTI).Urinary tract infections are usually the result of anorectal bacteria getting into the urinary tract. Always wipe from front to back, drink plenty of fluids, and urinate after intercourse if sexually active. Start the prescribed antibiotic as soon as possible and complete the full course of treatment as discussed. Take with food/probiotics to decrease GI upset. Can take OTC acetaminophen/NSA IDs (if tolerated) as needed for discomfort. Recommend to take with food to decrease GI upset. Increase Fluid intake. Follow up if not experiencing improvement in the next 2-3 days. Return to clinic immediately or go to the ER if develop fever, vomiting, back pain, inability to empty bladder, other new or worsening symptoms, or if your symptoms do not resolve after a full course of antibiotics. Discussed all medication use, risks, and side effects at length. Patient expressed agreement and understanding with plan. Patient left the urgent care in stable condition with all questions answered. Hematuria was positive on UA. Discussed that it is recommended to repeat the UA in 2-3 weeks to ensure that hematuria has resolved. 07/31/2024 Acute cystitis without hematuria (ICD-10 - [...] improve in a week, return to clinic. 10/10/2024 Acute UTI (ICD-10 - N39.0) Patient will take 1000mg of cephalexin in divided daily dose x 5 days. She will follow up with her PCP due to her frequent UTIs in the next 1-2 weeks. 02/22/2025 Acute cystitis with hematuria (ICD-10 - [...] that all of their questions were answered. 10/10/2024 Other Urinary Tract Infection: Exam and [...] corrected promptly upon discovery. PLAN OF TREATMENT No Information Insurance Providers Payer Name Payer Address Payer Phone Subscriber Number Group Number Insured Name Patient Relationship to Insured Coverage Start Date Coverage End Date MEDICARE [employer] DE[employer] [address] [place] [phone] [id number] Brigitte Key Self - patient is the insured
--- OUTSIDE RECORDS SUMMARY | 2025-04-01 20:01 | XMS_ITS | Encounter Summary ---
Author Organization [facility] Address [address] [place] [address] Care Team Providers Care New Client Banking Services Clerk Name Role Phone Bassam Byrne MD Unavailable [phone] Dominik Barr DO Primary Care Provider Mili Schroeder MD Unavailable [phone] Naresh Whitehead MD Unavailable [phone] Manjit Pace MD Unavailable Unavailable [facility] - Unavailable Unavailable Encounter Details Date Type Department Care Team (Late st Contact Info) Description 12/12/2024 Pre Visit [facility] - Internal Medicine: [address] [place] [address] Dominik Barr DO [address] [place] [address] Social History Tobacco Use Types Packs/Day Years Used Date Smoking Tobacco: Never Passive Smoke Exposure: Past Smokeless Tobacco: Never Alcohol Use Standard Drinks/Week Comments Yes 0 (1 standard drink = 0.6 oz pur e alcohol) Once a week Utilities Answer Date Recorded Within the last 12 months, h ave you or your family member you live with been unable to get utilities (heat, electricity) when it was really needed? No 12/19/2024 [facility] Safety Screener Answer Date Record ed [...] and heating? Not hard at all 12/19/2024 [facility] Food Insecurity Screener Answer Da te Recorded Within the past 12 months, y ou worried that your food would run out before you got the money to buy more? No 12/19/2024 Within the past 12 months, t he food you bought just didn t last and you didn t have money to get more? No 12/19/2024 [facility] Transportation Needs Screener Answer Date Recorded Within the last 12 months, h as the lack of transportation kept you from medical appointments, meetings, work, or from getting things needed for daily living? No 12/19/2024 [facility] Housing Stability Screener Answer Date Recorded Do you have housing? Yes 12/19/2024 Are you worried about losing your housing? 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 [place] [address] Dominik Barr, [address] [place] [address] Discharge Disposition: Home or Self Care 12/24/2025 2:00 PM [facility] Office Visit [facility] - Internal Medicine: [address] [place] [address] Dominik Barr, [address] [place] [address] Discharge Disposition: Home or Self Care documented as of this encounter Goals Goal Patient Goal Type Associated Problems Recent Progress Patient-Stated? Author Remove loose rugs, avoid slippery surfaces, ensure adequate lighting in home, place handrails on stairs and in bathroom Fall Risk/Imbalance On track(2014 11:12 AM [facility]) No Dominique Begum LPN Manage stress Lifestyle On track(2015 10:39 AM [facility]) No Dominique Begum LPN Note: See counselors Reduce alcohol intake to1 serving Preventative Health/Routine Health Maintenance No Dominique Begum LPN Note: Do not have more than 1 alcoholic drink in a setting. She will have increased spinning and side effects. documented as of this encounter Visit Diagnoses Not on filedocumented in this encounter Care Teams New Client Banking Services Clerk Relationship Specialty Start Date End Date Dominik Barr DO [address] [place] [address] PCP - General Internal Medicine 10/31/19 Bassam Byrne MD [address] [facility] [address] [place] [address] Neurology 03/04/12 Mili Schroeder MD [address] [facility] [place] [address] Physician (Non Attending) Gastroenterology 10/12/20 Naresh Whitehead MD [address] [place] [address] Physician (Non Attending) Sports Medicine 10/12/20 Manjit Pace MD [address] [place] [address] Physician (Non Attending) Cardiology 10/12/20 [facility] - [address] [place] [address] Psychiatry 07/20/21 documented as of this encounter
--- OUTSIDE RECORDS SUMMARY | 2025-04-01 20:01 | XMS_ITS | Patient Health Record ---
Author Organization [facility] Address [facility] [address] [place] [address] Support Name Relationship Address Phone SATHYA MARIA Guarantor Unknown [phone] Allergies No Known Allergies Reason For Referral No Information Plan Of Treatment No Information Insurance Providers Payer Name Payer Address Payer Phone Subscriber Number Group Number Insured Name Patient Relationship to Insured Coverage Start Date Coverage End Date MEDICARE [place] [address] [place] [phone] [id number] SATHYA MARIA Self - patient is the insured [employer] MEDICARE SUPPLEMENTAL INSURANCE [address] [address] [place] [address] [phone] [id number] SATHYA MARIA Self - patient is the insured
[2025-04-01 20:11] VITALS: BP 142/80; PULSE 86; RESP 16; TEMP 36.7; O2SAT 97; BMI 24.4
--- NOTE | 2025-04-01 20:37 | ED.GENADULT ---
HPI - General Adult General Stated complaint: UTI, flank pain Time Seen by Provider: 04/01/25 20:04 History of Present Illness HPI narrative: Patient is a pleasant 74-year-old female from [facility] visiting, she has a UTI diagnosed few days ago started on Macrodantin, but that typically does not work for she was switched to Septra. She continues to have some intermittent symptoms although the dysuria and frequency seemed to be gone. She has no flank pain that she describes to me no rigors or chills. She feels like it is not fully treated at this point. She has had frequent UTIs. Related Data Home Medications ?Medication ?Instructions ?Recorded ?Confirmed lamotrigine 25 mg tablet 25 mg PO ONCE 03/30/25 04/01/25 clonazepam 1 mg tablet 1 mg PO QPM PRN 04/01/25 04/01/25 duloxetine 30 mg capsule,delayed 30 mg PO QAM 04/01/25 04/01/25 release rosuvastatin 10 mg tablet 10 mg PO QPM 04/01/25 04/01/25 Previous Rx's ?Medication ?Instructions ?Recorded cephalexin 500 mg capsule 500 mg PO TID 7 days #21 caps 03/31/25 Allergies Allergy/AdvReac Type Severity Reaction Status Date / Time codiene Allergy Intermediate Uncoded 04/01/25 20:09 Review of Systems Status of ROS: Reports: 6 or more systems reviewed and unremarkable except as noted in History and below Exam Narrative: Exam Narrative: Objective: The patient's vital signs look unremarkable she is afebrile No flank tenderness Mild suprapubic tenderness. Const: Vital Signs, click to edit/add: Vital Signs - 24 hr 04/01/25 20:11 Temperature 98.1 F Pulse Rate [Pulse Oximeter] 86 Respiratory Rate 16 Blood Pressure [Ri ght Upper Arm] 142/80 H Pulse Oximetry 97 Oxygen Delivery Me thod Room Air Course Vital Signs Vital signs: Initial Vital Signs Temperature 98.1 F 04/01/25 20:11 Temperature Source Temporal Artery Scan 04/01/25 20:11 Pulse Rate 86 04/01/25 20:11 Respiratory Rate 16 04/01/25 20:11 Blood Pressure 142/80 H 04/01/25 20:11 Blood Pressure Mean 100 04/01/25 20:11 Pulse Oximetry 97 04/01/25 20:11 Oxygen Delivery Method Room Air 04/01/25 20:11 Vital Signs Temperature 98.1 F 04/01/25 20:11 Pulse Rate 86 04/01/25 20:11 Respiratory Rate 16 04/01/25 20:11 Blood Pressure 142/80 H 04/01/25 20:11 Pulse Oximetry 97 04/01/25 20:11 Oxygen Delivery Method Room Air 04/01/25 20:11 Temperature 98.1 F 04/01/25 20:11 Pulse Rate 86 04/01/25 20:11 Respiratory Rate 16 04/01/25 20:11 Blood Pressure 142/80 H 04/01/25 20:11 Pulse Oximetry 97 04/01/25 20:11 Oxygen Delivery Method Room Air 04/01/25 20:11 Medical Decision Making MDM Narrative Medical decision making narrative: [age] white female with partially treated UTI persistent symptoms. At this point I think simply giving IM Rocephin 1 g would be appropriate and finish the Septra. This is what the patient wishes. Return in reassess if problems or not improving. Discharge Plan Discharge Clinical Impression: Urinary tract infection Patient Disposition: Home, Self-Care Condition: Stable Additional Instructions: Finish the antibiotic you have at home, your given an injection of a strong antibiotic in the form of a shot, return if problems or concerns. Activity Level: Light activity Discharge Diet: Regular Prescriptions: No Action lamotrigine 25 mg tablet 25 mg PO ONCE clonazepam 1 mg tablet 1 mg PO QPM PRN rosuvastatin 10 mg tablet 10 mg PO QPM duloxetine 30 mg capsule,delayed release(DR/EC) 30 mg PO QAM cephalexin 500 mg capsule 500 mg PO TID 7 Days Qty: 21 0RF Follow Up/Referrals: Provider,Not a Local [Primary Care Provider, Family Practice] Stand Alone Forms: MyHealth Info Instructions
[2025-04-01] MEDS: cefTRIAXone 1 GM VIAL IM (21:36)
[2025-04-01] MEDS: LIDOCAINE 1% 5 ml (pf) 5 ML VIAL 2.1 ML IM (21:36)
== END 2025-04-01 21:00 | disposition home or self-care (01) ==
LOC: ED 20:51
PROVIDERS: Emergency Provider Family Medicine
DX: N39.0 Urinary tract infection, site not specified (principal)
CPT/HCPCS: 81001; 99283; J0696